=== PATIENT | female | born 1960 | race Caucasian/White ===

== ENCOUNTER 2021-07-05 13:21 | Emergency (ER) | payer BC, SELFPAY ==
--- NOTE | ~2021-07-05 | XR_ITS ---
EXAMINATION: XR chest 2V DATE: 07/05/2021 13:58 INDICATION: Cough and shortness of breath TECHNIQUE: PA and lateral views of the chest are obtained. COMPARISON: 08/13/2017 FINDINGS: The lungs are free of acute opacities. There is no pleural effusion or pneumothorax. The ca rdiomediastinal silhouette is normal. There is moderate thoracic spondylosis. IMPRESSION: 1. No acute cardiopulmonary abnormality. Reviewed, dictated and finalized at location B.
[2021-07-05 13:34] VITALS: BP 140/79; PULSE 93; RESP 18; TEMP 38.2; O2SAT 97
--- NOTE | 2021-07-05 13:42 | ED.GENADULT ---
HPI - General Adult General Chief complaint: Upper Respiratory Infection Stated complaint: upper respiratory infection Time Seen by Provider: 07/05/21 13:43 Source: patient and RN notes reviewed Mode of arrival: ambulatory Limitations: no limitations History of Present Illness HPI narrative: 60-year-old female presents with complaints of dry cough, congestion, runny nose, and fever for the past 4 days. ?Jessica reports increasing URI symptoms with elevated temperature over the past 2 days. ?OTC cough medications and NyQuil at night, last taken on 07/04/2021 without relief. ?Constant dry cough without chest congestion. ?Rhinorrhea and nasal congestion. ?Denies sore throat. ?High fevers, highest 103F, orally without chills or sweats. ?No drooling, neck or throat swelling. ?No chest pain, wheezing, or shortness of breath. ?No exacerbation factors. ?Denies nausea, vomiting, and abdominal pain. ?Diarrhea 2 days ago, none since then, had 2 episodes without blood. ?Urine output WNL. ?Tolerating liquids well. ?Remains active. ?The patient reports she has not been diagnosed with COVID-19. ?The patient reports she took a [id number] vaccine at [facility] on 07/04/2021 with a NEGATIVE result today. ?The patient reports she received 2 [employer] COVID-19 vaccines. ?The patient reports she is not waiting for the results of a COVID-19 lab test. ?The patient reports she does not have weakness, fatigue, or myalgia. ?The patient reports she does not have a worsening cough. ?The patient reports she does not have any loss of taste or smell. ?Denies recent traveling. ?Denies concerns for COVID-19 or exposures. ?At this time, the patient is not suspected of having COVID-19.?? Some parts of this dictation were generated by voice recognition software and may contain typographical and/or grammatical inaccuracies. Related Data Home Medications Medication Instructions Recorded Confirmed amlodipine-benazepril 1 cap PO DAILY 07/05/21 07/05/21 atorvastatin 10 mg PO DAILY 07/05/21 07/05/21 hydrochlorothiazide 25 mg PO DAILY 07/05/21 07/05/21 Allergies Allergy/AdvReac Type Severity Reaction Status Date / Time No Known Allergies Allergy Verified 07/05/21 13:25 Review of Systems Review of Systems: CONSTITUTIONAL: Denies chills, sweats. Complaints of fever. EYES: Denies visual changes, redness, discharge. ENT: Complaints of rhinorrhea, congestion. Denies sore throat, otalgia. CARDIOVASCULAR: Denies chest pain, palpitations, edema. RESPIRATORY: Denies dyspnea, wheezing. Complaints of dry cough. GASTROINTESTINAL: Denies abdominal pain, nausea, vomiting, diarrhea. SKIN: Denies rash or itching. MUSCULOSKELETAL: Denies acute back pain, joint pain, or myalgia. NEUROLOGIC: Denies numbness or focal weakness. PSYCHIATRIC: Denies anxiety or depression. All systems reviewed & are unremarkable except as noted in HPI and below. [facility] Past Medical History Medical History (Updated 07/05/21 @ 14:18 by PIERRE Barlow) delivery delivered Hypercholesteremia Hypertension Surgical History Surgical History (Updated 07/05/21 @ 14:07 by PIERRE Barlow) H/O section X1 30 years ago Family History Family History (Updated 07/05/21 @ 14:08 by PIERRE Barlow) Father Carcinoma of colon Mother Hypertension Diabetes mellitus Pulmonary fibrosis Social History Social History (Updated 07/05/21 @ 14:08 by PIERRE Barlow) Smoking status: Never smoker Tobacco type: cigarettes Second hand tobacco smoke exposure: No Alcohol intake: never Substance use: never Substance use type: does not use Living arrangements: with family Occupation/Education: other Additional occupation/education comments: homemaker Gender identity (if verbalized by the patient): Female Sexual Orientation (if Verbalized by the Patient): Straight or Heterosexual Comments At time of signature, agree with the nurse pas
== END 2021-07-05 14:19 | disposition home or self-care (01) ==
PROVIDERS: Emergency Provider Nurse Practitioner Family; PCP Internal Medicine
DX: J40 Bronchitis, not specified as acute or chronic (principal); H92.02 Otalgia, left ear; E78.00 Pure hypercholesterolemia, unspecified; I10 Essential (primary) hypertension
CPT/HCPCS: 71046; 99213; G0463

== ENCOUNTER 2022-01-05 11:28 | Emergency (ER) | payer BC, SELFPAY ==
[2022-01-05 11:37] VITALS: BP 168/90; PULSE 89; RESP 18; TEMP 37.3; O2SAT 98
--- NOTE | 2022-01-05 12:02 | ED.EAR ---
HPI - Ear Problem General Chief complaint: Ear Stated complaint: Sinus,Cough,Lt Ear Irritation Time Seen by Provider: 01/05/22 12:02 Source: patient Mode of arrival: ambulatory Limitations: no limitations History of Present Illness HPI Narrative: Jessica Arteaga is a 61 yo female with a PMH of HTN, seasonal allergies who comes to [facility] with left ear pain and sinus congestion. She was started on a antihistamine by her physician on Friday that she says not doing any good (ipatroprium)-patient states she cannot sleep when she is got a lot of coughing associated with the drainage Most all over the counter medication including Mucinex, NyQuil, Mucinex cold and allergy medicine, Erica Murphy Related Data Home Medications Medication Instructions Recorded Confirmed amlodipine-benazepril 1 cap PO DAILY 07/05/21 07/05/21 atorvastatin 10 mg PO DAILY 07/05/21 07/05/21 hydrochlorothiazide 25 mg PO DAILY 07/05/21 07/05/21 Allergies Allergy/AdvReac Type Severity Reaction Status Date / Time No Known Allergies Allergy Verified 01/05/22 11:39 Review of Systems Review of Systems: CONSTITUTIONAL: Denies fever, chills, sweats. EYES: Denies visual changes, redness, discharge. ENT: Denies rhinorrhea, has congestion, sore throat, left otalgia. CARDIOVASCULAR: Denies chest pain, palpitations, edema. RESPIRATORY: Denies dyspnea, wheezing, dry cough GASTROINTESTINAL: Denies abdominal pain, nausea, vomiting, diarrhea. GENITOURINARY: Denies dysuria, hematuria, abnormal discharge SKIN: Denies rash or itching. NEUROLOGIC: Denies numbness, or focal weakness. PSYCHIATRIC: Denies anxiety or depression. [facility] Past Medical History Medical History delivery delivered Hypercholesteremia Hypertension Surgical History Surgical History H/O section X1 30 years ago Family History Family History Father Carcinoma of colon Mother Hypertension Diabetes mellitus Pulmonary fibrosis Social History Social History Smoking status: Never smoker Tobacco type: cigarettes Second hand tobacco smoke exposure: No Alcohol intake: never Substance use: never Substance use type: does not use Additional occupation/education comments: homemaker Gender identity (if verbalized by the patient): Female Sexual Orientation (if Verbalized by the Patient): Straight or Heterosexual Comments At time of signature, I agree with nursing past medical, surgical, social and family history. There is no relevant family history pertinent to the presenting complaint. Exam Narrative: GENERAL: This is a well-nourished, well-developed patient, in mild distress. HEAD: normocephalic, atraumatic. EYES: Sclera clear/white. Vision is grossly intact. EARS: External ears normal, auditory canals left erythema and without drainage, behind both TM. Hearing grossly intact. NOSE: External nose normal with nasal discharge, nares without redness, no rhinorrhea. THROAT: Mucous membranes moist, NECK: Neck supple, non-tender CARDIOVASCULAR: Regular rate and rhythm without murmurs, gallops, or rubs. RESPIRATORY: Clear to auscultation. Breath sounds equal bilaterally. No wheezes, rales, or rhonchi. GASTROINTESTINAL: Abdomen soft, non-tender, SKIN: warm, intact with no suspicious lesions or rash, good texture and turgor. NEURO: awake, alert, and oriented to person, place and time. There were no obvious focal neurologic abnormalities. Steady gait EXTREMITIES: Normal range of motion. BACK: Nontender without deformity Course Course Emergency Course: Patient comes with left ear pain and congestion with cough that is unresponsive to ipratropium nasal spray Started on polymyxin eardrops, prednisone 50 mg x 5 days, Zyrtec or Clariti
== END 2022-01-05 12:25 | disposition home or self-care (01) ==
PROVIDERS: Emergency Provider Nurse Practitioner; PCP Internal Medicine
DX: H66.002 Acute suppurative otitis media without spontaneous rupture of ear drum, left ear (principal); J01.10 Acute frontal sinusitis, unspecified; E78.00 Pure hypercholesterolemia, unspecified; I10 Essential (primary) hypertension
CPT/HCPCS: 99213; G0463

== ENCOUNTER 2022-07-20 15:21 | Emergency (ER) | payer BC, SELFPAY ==
[2022-07-20 15:41] VITALS: BP 146/85; PULSE 100; RESP 18; TEMP 37.3; O2SAT 98
--- NOTE | 2022-07-20 16:03 | ED.GENADULT ---
HPI - General Adult General Chief complaint: Ear Stated complaint: Sinus Pressure in Nose, Left Ear Pain History of Present Illness HPI narrative: Patient is a 61-year-old female who presents to the [facility] care via POV for evaluation of a sinus problem that began 1 week ago. She reports sinus pain, sinus drainage, generalized headache that is worse on the left side, sneezing, and low-grade fever. She reports maximum temperature was 100.3. Nasal drainage is yellow and green per her report. Pain is intermittent and throbbing in nature. She has had mild relief after taking Sudafed, Tylenol, and Advil. Laying down increases sinus pain. Related Data Home Medications Medication Instructions Recorded Confirmed amlodipine 5 mg-benazepril 10 mg 1 cap PO DAILY 07/05/21 07/20/22 capsule atorvastatin 10 mg tablet 10 mg PO DAILY 07/05/21 07/20/22 hydrochlorothiazide 25 mg tablet 25 mg PO DAILY 07/05/21 07/20/22 albuterol sulfate 90 mcg/actuation 1 - 2 puff inhalation QID PRN 01/05/22 07/20/22 aerosol inhaler (ProAir HFA) Shortness Of Breath Or Wheezing Allergies Allergy/AdvReac Type Severity Reaction Status Date / Time No Known Allergies Allergy Verified 07/20/22 15:32 Review of Systems Review of Systems: Denies chills, sweats, change in appetite, poor p.o. intake, severe persistent headaches, ear pain, sore throat, dizziness, LOC, dental pain, tinnitus, vertigo, nausea, vomiting, diarrhea, abdominal pain, shortness of breath, cough, chest pain, and heart palpitations PMF Past Medical History Medical History delivery delivered Hypercholesteremia Hypertension Surgical History Surgical History H/O section X1 30 years ago Family History Family History Father Carcinoma of colon Mother Hypertension Diabetes mellitus Pulmonary fibrosis Social History Social History Smoking status: Never smoker Tobacco type: cigarettes Second hand tobacco smoke exposure: No Alcohol intake: never Substance use: never Substance use type: does not use Additional occupation/education comments: homemaker Gender identity (if verbalized by the patient): Female Sexual Orientation (if Verbalized by the Patient): Straight or Heterosexual Comments I have reviewed and agree with the patient's past medical, surgical, social, and family hx as documented by the RN. There is no relevant family history pertinent to the presenting complaint. Exam Narrative: GENERAL: Well-appearing, well-nourished, and in no acute distress. HEAD: Normocephalic, atraumatic. Moderate pain and facial swelling noted over maxillary left sinus EYES: PERRLA and EOMI. No evidence of erythema, swelling, or drainage. ENT: Bilateral external ears and ear canals normal. Bilateral TMs are normal.No TM perforation. Nares clear, no rhinorrhea or epistaxis. Bilateral turbinates without erythema/ swelling. Mucous membranes moist and pink. Uvula is midline without erythema and swelling. Breath odor and voice normal. NECK: Supple. No Lymphadenopathy or nuchal rigidity appreciated. CHEST: Bilateral lung hoffman are clear to auscultation. No respiratory distress. No evidence of cough or pleuritic cp upon examination. HEART: Regular rate and rhythm. No murmur, gallop, or rub heard. EXTREMITIES: Normal range of motion. No edema. SKIN: Warm, dry, no rash. NEURO: No focal deficits. Alert and oriented x3. Course Course Level of Care: Express Care Visit Vital Signs Vital signs: Vital Signs Temperature 99.1 F 07/20/22 15:41 Pulse Rate 100 07/20/22 15:41 Respiratory Rate 18 07/20/22 15:41 Blood Pressure 146/85 H 07/20/22 15:41 Pulse Oximetry 98 07/20/22 15:41 Oxygen Delivery Room Air
== END 2022-07-20 16:14 | disposition home or self-care (01) ==
PROVIDERS: Emergency Provider Nurse Practitioner Family
DX: J01.00 Acute maxillary sinusitis, unspecified (principal); Z20.822 Contact with and (suspected) exposure to COVID-19; E78.00 Pure hypercholesterolemia, unspecified; I10 Essential (primary) hypertension
CPT/HCPCS: 87426; 99213; C9803; G0463

== ENCOUNTER → 2023-07-29 13:27 | Outpatient (CLI) | payer BC, SELFPAY ==
--- NOTE | ~2023-07-29 | MM_ITS ---
EXAMINATION: MM screening adilson BI w victoria HISTORY: Screening mammogram TECHNIQUE: Craniocaudal and mediolateral oblique 3-D tomosynthesis images were obtained and synthetic 2-D images were generated. CAD analysis was submitted and interpreted. COMPARISON: 10/07/2019 bilateral screening mammogram examination 06/13/2015 diagnostic right mammogram and complete right breast ultrasound examination, reported negat vanita 05/24/2015 bilateral screening mammogram BREAST PARENCHYMAL COMPOSITION: The breasts are heterogeneously dense, which may obscure small masses . FINDINGS: There is no evidence of suspicious mass, calcification, or architectural distortion to sugg est malignancy in either breast. There has been no suspicious interval change. IMPRESSION: 1. No mammographic evidence of malignancy. 2. Recommend routine screening mammography in one year. BI-RADS Category 1: Negative Reviewed, dictated and finalized at location A.
== END ==
PROVIDERS: PCP Internal Medicine; Visit Provider Internal Medicine
DX: Z12.31 Encounter for screening mammogram for malignant neoplasm of breast (principal)
CPT/HCPCS: 77063; 77067

== ENCOUNTER 2024-09-03 13:05 | Emergency (ER) | payer BC, SELFPAY ==
--- NOTE | ~2024-09-03 | XR_ITS ---
CHEST RADIOGRAPH, PA AND LATERAL CLINICAL HISTORY: INTERMITTENT CP AND DIZZINESS SINCE YESTERDAY . COMPARISON: 07/05/2021 TECHNIQUE: PA and lateral views of the chest. FINDINGS The cardiomediastinal silhouette is unremarkable. Elevation of the right hemidiaphragm with trace adjacent compressive atelectasis. The remainder of the lungs are clear. Visualized osseous structures and soft tissues are unremarkable. IMPRESSION: No focal infiltrate or effusion. Reviewed, dictated and finalized at location A.
--- NOTE | 2024-09-03 13:07 | ECG_ITS ---
Test Date: 2024-09-03 13:15:56 Measurements Intervals [place] Rate: 76 P: 36 AK: 155 QRS: -41 QRSD: 74 T: 61 QT: 299 QTc: 338 Interpretive Statements SINUS RHYTHM MARKED LEFT AXIS DEVIATION [QRS AXIS < -30] Poor R wave progression ARTIFACT No previous ECG available for comparison Electronically Signed On 09-04-2024 08:22:16 CDT by Lc Quinones M.D.
[2024-09-03 13:08] VITALS: BP 162/98; PULSE 89; RESP 15; O2SAT 97
[2024-09-03] MEDS: ASPIRIN 81 MG CHEWABLE TABLET 324 MG PO (13:30)
[2024-09-03 13:43] LABS: Basophils Absolute Auto 0.1 K/mm3 (0.0-0.1); Basophils Percent Auto 0.8 % (0.2-1.2); Eosinophils Absolute Auto 0.1 K/mm3 (0-0.3); Eosinophils Percent Auto 1.1 % (0-4.4); Hematocrit 45.9 % (37.0-47.0); Hemoglobin 15.6 g/dL (12.0-15.0); Immature Granulocyte Absolute 0.02 K/mm3 (0.00-0.031); Immature Granulocyte Percent A 0.3 % (0-0.5); Lymphocytes Absolute Auto 2.05 K/mm3 (0.9-3.2); Lymphocytes Percent Auto 31.9 % (18.3-44.2); Mean Corpuscular Hemoglobin 31.1 pg (26-34); Mean Corpuscular Volume 91.4 fl (80-100); Mean Platelet Volume 10.1 fl (7.4-10.4); Monocytes Absolute Auto 0.4 K/mm3 (0.1-0.6); Monocytes Percent Auto 5.6 % (2.6-8.5); Neutrophils Absolute Auto 3.9 K/mm3 (1.3-6.7); Neutrophils Percent Auto 60.3 % (45.5-73.1); Platelet Count Result 233 k/mm3 (150-375); Red Blood Count 5.02 M/mm3 (4.2-5.4); Red Cell Distribution Width 12.8 % (11.5-14.5); White Blood Count 6.4 K/mm3 (4.5-10.0)
--- NOTE | 2024-09-03 13:54 | ED.CHESTPAIN ---
HPI - Chest Pain General Chief Complaint: Chest Pain Stated Complaint: chest pain Time Seen by Provider: 09/03/24 13:09 History of Present Illness HPI narrative: The patient states yesterday she had a sensation of chest pressure that resolved, and then this morning had also noticed a since shown of chest pressure. Has had this intermittently in the past a cough along with some back pain, was nervous and wanted to make sure her heart was okay so came in here today. Symptoms have now resolved completely. Did initially have some slight tingling in her hands and feet but unsure if this was from anxiety Related Data Home Medications Medication Instructions Recorded Confirmed amlodipine 5 mg-benazepril 10 mg 1 cap PO DAILY 07/05/21 07/20/22 capsule atorvastatin 10 mg tablet 10 mg PO DAILY 07/05/21 07/20/22 hydrochlorothiazide 25 mg tablet 25 mg PO DAILY 07/05/21 07/20/22 albuterol sulfate 90 mcg/actuation 1 - 2 puff inhalation QID PRN 01/05/22 07/20/22 aerosol inhaler (ProAir HFA) Shortness Of Breath Or Wheezing Allergies Allergy/AdvReac Type Severity Reaction Status Date / Time No Known Allergies Allergy Verified 09/03/24 13:44 Review of Systems Review of Systems: All systems reviewed & are unremarkable except as noted in HPI and below PMFSH Past Medical History Medical History delivery delivered Hypercholesteremia Hypertension Surgical History Surgical History H/O section X1 30 years ago Family History Family History Father Carcinoma of colon Mother Hypertension Diabetes mellitus Pulmonary fibrosis Social History Social History Smoking status: Never smoker Tobacco type: cigarettes Second hand tobacco smoke exposure: No Alcohol intake: never Substance use: never Substance use type: does not use Living arrangements: with family Occupation/Education: other Additional occupation/education comments: homemaker Gender identity (if verbalized by the patient): Female Sexual Orientation (if Verbalized by the Patient): Straight or Heterosexual Exam Narrative: EXAMINATION OF ORGAN SYSTEMS/BODY AREAS: Constitutional: Vital signs per nursing GENERAL:[No acute distress, non-toxic appearing.] HEAD: Normal with no signs of head trauma. EYES: EOMI, conjunctiva normal ENT: Hearing grossly intact LUNGS: Nonlabored breathing. Clear to auscultation bilaterally HEART: [Regular rate and rhythm], normal radial and DP pulses bilaterally ABD: [Soft], [nontender to palpation] EXT: Normal range of motion SKIN: [No rashes or lesions.] NEURO: [Alert and oriented x 3. No gross focal sensory or strength deficits.] PSYCH: Normal affect Course Vital Signs Vital signs: Vital Signs Pulse Rate 89 09/03/24 13:08 Respiratory Rate 15 09/03/24 13:08 Blood Pressure 162/98 H 09/03/24 13:08 Pulse Oximetry 97 09/03/24 13:08 Oxygen Delivery Room Air 09/03/24 13:08 Pulse Rate 75 09/03/24 14:45 Respiratory Rate 20 09/03/24 14:45 Blood Pressure 140/76 09/03/24 14:45 Pulse Oximetry 96 09/03/24 14:45 Oxygen Delivery Room Air 09/03/24 13:20 MDM - Chest Pain MDM Narrative Medical decision making narrative: ED COURSE AND MEDICAL DECISION MAKIN-year-old female presenting with chest pain. EKG done in triage negative for acute ischemic changes. Cardiac workup is initiated. EKG: Performed in triage and interpreted by me; limited by artifact. Appears to be Normal sinus rhythm. Rate 76. Normal axis. VA normal. QRS duration normal. QTc normal. No pathologic Q waves. No ST segment elevation or depression to suggest acute ischemia. No RV strain pattern. HEART score is 0 with no acute ischemic changes on EKG and negative
[2024-09-03 14:00] VITALS: BP 140/80; PULSE 73; RESP 15; O2SAT 94
[2024-09-03 14:00] LABS: INR 0.9; Prothrombin Time 12.7 Seconds (11.1-14.7)
[2024-09-03 14:01] LABS: Partial Thromboplastin Time 25.8 Seconds (22.3-36.8)
[2024-09-03 14:06] LABS: Alanine Aminotransferase 33 U/L (6-35); Albumin Level 5.2 g/dL (3.5-5.1); Alkaline Phosphatase 112 U/L (38-126); Anion Gap 10 mmol/L (4-12); Aspartate Amino Transferase 56 U/L (14-36); Bilirubin,Total 1.1 mg/dL (0.2-1.3); Blood Urea Nitrogen 16 mg/dL (7-17); Calcium 10.9 mg/dL (8.4-10.2); Carbon Dioxide 29 mmol/L (22-30); Chloride 100 mmol/L (98-107); Estimated CRCL calculation 51 ml/min; Estimated Glomerular Filt Rate 50; Glucose 124 mg/dL (65-110); Lipase 72 U/L (23-300); Potassium 3.9 mmol/L (3.4-5.0); Sodium 139 mmol/L (137-145)
[2024-09-03 14:17] LABS: Troponin I < 0.012 ng/mL (0.000-0.034)
[2024-09-03 14:28] VITALS: BP 135/78; PULSE 82; RESP 30; O2SAT 95
[2024-09-03 14:45] VITALS: BP 140/76; PULSE 75; RESP 20; O2SAT 96
== END 2024-09-03 14:45 | disposition home or self-care (01) ==
PROVIDERS: Emergency Provider Emergency Medicine; PCP Internal Medicine
DX: R07.89 Other chest pain (principal); I10 Essential (primary) hypertension; E78.00 Pure hypercholesterolemia, unspecified
CPT/HCPCS: 36415; 71046; 80053; 83690; 84484; 85025; 85610; 85730; 93005; 99284; A9270

== ENCOUNTER 2025-11-07 10:07 | Outpatient (CLI) | payer BC, SELFPAY ==
--- NOTE | ~2025-11-07 | MM_ITS ---
EXAMINATION: MM screening adilson BI w victoria HISTORY: Screening TECHNIQUE: Craniocaudal and mediolateral oblique 3-D tomosynthesis images were obtained and synthetic 2-D images were generated. CAD analysis was submitted and interpreted. COMPARISON: Comparison to multiple prior studies sequentially, with oldest reviewed study dated , 05/02/2009 BREAST PARENCHYMAL COMPOSITION: Dense: The breasts are heterogeneously dense, which may obscure small masses. FINDINGS: There is no evidence of suspicious mass, calcification, or architectural distortion to suggest malignancy in either breast. IMPRESSION: 1. No mammographic evidence of malignancy. 2. Recommend routine screening mammography in one year. BI-RADS Category 1: Negative Reviewed, dictated and finalized at location A. N SYSTEM OPERATOR
== END 2025-11-07 10:08 | disposition home or self-care (01) ==
PROVIDERS: PCP Internal Medicine; Visit Provider Internal Medicine
DX: Z12.31 Encounter for screening mammogram for malignant neoplasm of breast (principal)
CPT/HCPCS: 77063; 77067